=== PATIENT | male | born 1985 | race Caucasian/White ===

== ENCOUNTER 2016-11-05 01:42 | Emergency (ER) | payer OTHER ==
[2016-11-05 03:12] LABS: BASOPHIL 0.5 % (0-2); EOSINOPHIL 0.4 % (0-5); HCT 43.2 % (42.0-52.0); HGB 14.9 g/dl (13.2-18.0); LYMPHOCYTE 13.5 % (15-48); MCH 27.9 pg (25.0-31.0); MCHC 34.5 g/dL (32.0-36.0); MCV 80.9 fL (78.0-100.0); MONOCYTE 8.1 % (0-12); MPV 10.1 fL (6.0-9.5); NEUTROPHIL 77.5 % (41-80); PLT 300 K/uL (150-400); RBC 5.34 M/uL (4.70-6.00); RDW 14.5 % (11.5-14.0); WBC 10.3 K/uL (4.0-10.5)
[2016-11-05 03:31] LABS: ALBUMIN 4.3 g/dL (3.5-5.0); BILIRUBIN - TOTAL 0.6 mg/dL (0.1-1.0); CREATININE 0.8 mg/dL (0.7-1.2); GLOBULIN (CALCULATION) 2.7 g/dL (2.2-4.2); POTASSIUM 3.9 mmol/L (3.5-5.1)
== END 2016-11-05 03:48 | disposition home or self-care (01) ==
LOC: FER 01:42
PROVIDERS: Emergency Medicine
DX: F41.1 Generalized anxiety disorder (principal)
CPT/HCPCS: 36415; 80053; 84484; 85025; 93005